=== PATIENT | male | born 1950 | race Caucasian/White ===

== ENCOUNTER → 2018-12-02 | Outpatient (CLI) | payer MEDICARE, OTHER ==
--- NOTE | 2018-12-02 16:57 | Diagnostic Imaging Report ---
PROCEDURE: CT abdomen and pelvis without contrast. TECHNIQUE: Multiple contiguous axial images were obtained through the abdomen and pelvis without the use of intravenous contrast. Auto Exposure Controls were utilized during the CT exam to meet ALARA standards for radiation dose reduction. INDICATION: Right lower quadrant pain. COMPARISON: There are no prior studies available for comparison. FINDINGS: Image 134/167 through the low pelvis shows a small 2 mm calculus in the distal right ureter roughly 2 cm from the ureterovesical junction. The ureter proximal to the calculus is slightly dilated, and there is some distortion of the periureteral fat as well. The right renal pelvis also slightly is dilated; most likely there is partial obstruction of the right collecting system due to the aforementioned calculus. There are a few minute 1 mm nonobstructive calculi within both kidneys as well as an 11-12 mm nonobstructive calculus in the mid portion of the left kidney and 5 mm and 10 mm nonobstructing calculi in the inferior pole of the left kidney. There are also benign-appearing cysts associated with both kidneys. However, there may be slight thickening of the dependent wall of the cyst along the superior pole of the right kidney. There is no evidence for a solid mass in this area, but either ultrasound or follow-up CT exam with intravenous contrast would be recommended to better evaluate this finding. There is no acute abnormality of the abdomen or pelvis noted otherwise. The liver was not visualized in its entirety as the dome of the liver is not included. Where visualized, the liver is unremarkable. The gallbladder, the spleen, the pancreas, the adrenals, the aorta, and the inferior vena cava show no sign of an acute abnormality. The stomach is not well distended and consequently difficult to assess. The appendix was visualized and is not abnormally thickened. There is diverticulosis of the sigmoid and descending colon, but there is no sign of acute diverticulitis. The urinary bladder is grossly unremarkable. The prostate gland is mildly enlarged measuring 5.6 cm in maximum transverse diameter (normal 5 cm or less). There may be a hydrocele within the right scrotum. If further study is desired, then ultrasound would be recommended. The bone windows show no sign of a fracture or of a destructive lesion. There is fairly severe degenerative disc and bony disease at L5-S1. The lung bases are generally clear. IMPRESSION: 1. There is partial obstruction of the right collecting system due to a 2 mm calculus near the ureterovesical junction. There are also nonobstructive calculi within both kidneys including at least two sizable calculi within the left kidney. 2. There is no acute abnormality of the abdomen or pelvis noted otherwise. 3. The prostate gland is mildly enlarged. 4. There is diverticulosis of the sigmoid and descending colon, but there is no sign of acute diverticulitis. 5. There is a questionable hydrocele involving the right scrotum. Recommendations as above. Dictated by: Dictated on workstation # [id number]
== END ==
LOC: RAD FS 15:47
PROVIDERS: ATTEND Surgery
DX: N20.2 Calculus of kidney with calculus of ureter (principal); K57.30 Diverticulosis of large intestine without perforation or abscess without bleeding; N40.0 Benign prostatic hyperplasia without lower urinary tract symptoms
CPT/HCPCS: 74176

== ENCOUNTER → 2018-12-09 | Outpatient (CLI) | payer MEDICARE, OTHER ==
--- NOTE | 2018-12-09 15:35 | Diagnostic Imaging Report ---
INDICATION: Right renal stone. TIME OF EXAMINATION: 12:34 PM. COMPARISON: No prior abdominal radiographs are available for comparison. Comparison is made with a recent CT study from 12/02/2018. FINDINGS: The previously seen nonobstructing calculi overlie the midportion of the left kidney. No definite right-sided renal calculi are seen. The tiny calculus in the region of the distal right ureter on the recent CT is not appreciated radiographically. The bowel gas pattern is unremarkable. IMPRESSION: Left-sided renal calculi. No other abnormality is detected. Dictated by: Dictated on workstation # [id number]
== END ==
LOC: RAD 12:21
PROVIDERS: ATTEND Urology
DX: N20.0 Calculus of kidney (principal)
CPT/HCPCS: 74018

== ENCOUNTER → 2018-12-25 | Outpatient (CLI) | payer MEDICARE, OTHER | END | disposition home or self-care (01) | LOC: PREOP 05:47 | PROVIDERS: ATTEND Urology | DX: Z01.818 Encounter for other preprocedural examination (principal) ==

== ENCOUNTER → 2019-12-31 | Outpatient (CLI) | payer MEDICARE, OTHER ==
[2020-01-01 13:04] LABS: POTASSIUM 4.2 MMOL/L (3.6-5.0)
[2020-01-01 13:05] LABS: BILIRUBIN,TOTAL 0.3 MG/DL (0.1-1.0); CALCIUM 9.2 MG/DL (8.5-10.1); CREATININE SERUM 1.73 MG/DL (0.60-1.30)
[2020-01-01 13:06] LABS: ALBUMIN 4.3 GM/DL (3.2-4.5)
== END ==
LOC: LAB FS 09:37
PROVIDERS: ATTEND Family Medicine
DX: I10 Essential (primary) hypertension (principal); E78.5 Hyperlipidemia, unspecified; G47.00 Insomnia, unspecified; R97.20 Elevated prostate specific antigen [PSA]
CPT/HCPCS: 36415; 80053; 80061; 84153

== ENCOUNTER → 2020-02-20 | Outpatient (CLI) | payer MEDICARE, OTHER ==
--- NOTE | 2020-02-20 14:23 | Diagnostic Imaging Report ---
INDICATION: Kidney stones. TIME OF EXAM: 01:50 p.m. COMPARISON: Correlation is made with prior radiograph from 12/09/2018. FINDINGS: Previously noted calcific densities overlying the left renal shadow are again noted. No right-sided renal calculi are seen. No calculi along the expected course of the ureters are identified. Bowel gas pattern is unremarkable. IMPRESSION: Left-sided renal calculi, similar to examination from 12/09/2018. Dictated by: Dictated on workstation # [id number]
[2020-02-20 15:32] LABS: HEMATOCRIT 39 % (40-54); HEMOGLOBIN 13.2 G/DL (13.3-17.7); MEAN CORPUSCULAR HEMOGLOBIN 32 PG (25-34); MEAN CORPUSCULAR VOLUME 93 FL (80-99); WHITE BLOOD COUNT 6.6 10^3/uL (4.3-11.0)
[2020-02-20 15:33] LABS: BASOPHILS % (AUTO) 0 % (0-10); EOSINOPHILS # (AUTO) 0.3 10^3/uL (0.0-0.3); EOSINOPHILS % (AUTO) 4 % (0-10); LYMPHOCYTES # (AUTO) 1.4 X 10^3 (1.0-4.0); LYMPHOCYTES % (AUTO) 21 % (12-44); MEAN CORPUSCULAR HGB CONC 34 G/DL (32-36); MEAN PLATELET VOLUME 9.8 FL (7.4-10.4); MONOCYTES # (AUTO) 0.5 X 10^3 (0.0-1.0); MONOCYTES % (AUTO) 7 % (0-12); NEUTROPHILS # (AUTO) 4.5 X 10^3 (1.8-7.8); NEUTROPHILS % (AUTO) 67 % (42-75); PLATELET COUNT 196 10^3/uL (130-400)
[2020-02-20 15:59] LABS: POTASSIUM 4.6 MMOL/L (3.6-5.0)
[2020-02-20 16:00] LABS: CALCIUM 9.7 MG/DL (8.5-10.1); CREATININE SERUM 1.58 MG/DL (0.60-1.30)
== END ==
LOC: RAD FS 13:43
PROVIDERS: ATTEND Urology
DX: Z01.812 Encounter for preprocedural laboratory examination (principal); N28.9 Disorder of kidney and ureter, unspecified; R97.20 Elevated prostate specific antigen [PSA]; Z87.442 Personal history of urinary calculi
CPT/HCPCS: 36415; 74018; 80048; 85025; G0103; 84153

== ENCOUNTER 2020-03-03 13:31 | Emergency (ER) | payer MEDICARE, OTHER ==
[2020-03-03] MEDS ORDERED: NS IV 1000 ML 1,000 ML IV STA (13:47)
--- NOTE | 2020-03-03 13:50 | ED Abdominal Pain ---
General Chief Complaint: Abdominal/GI Problems Stated Complaint: ABD PAIN Nursing Triage Note: Is having lower left quadrant abdominal pain x4 days. Last BM was 02/27 and was small and hard. States he is constipated. Has been miralax daily, fleet enema on 02/28, dulcolax for 3 days, and a suppository today with no relief. Pain is rated at 6/10. Has been taking tylenol for pain. Sepsis Screen: No Definite Risk Source of Information: Patient, Old Records, RN/MD, RN Notes Reviewed History of Present Illness Date Seen by Provider: Mar 03, 2020 Time Seen by Provider: 13:40 Initial Comments This patient is a 69-year-old male presents to the emergency department complaining of left lower quadrant abdominal pain this been persistent for 2 days. Patient states that he believes is constipated and has been taking laxativ es with no relief. Patient says when history as he recently had a lithotripsy Do history kidney stones and had been feeling well for couple days until this abdominal pain starts. Patient denies clot flank pain denies fever. Denies issues with urination. We'll do medical evaluation treatment is needed. Timing/Duration: 1-2 Days Severity/Quality: Moderate Location: LLQ Radiation: No Radiation Associated Symptoms: Denies Symptoms Allergies and Home Medications Allergies Coded Allergies: No Known Drug Allergies (Unverified , 03/03/20) Patient Home Medication List Home Medication List Reviewed: Yes Review of Systems Review of Systems Constitutional: No no symptoms reported, No see HPI, No chills, No diaphoresis, No dizziness, No fever, No malaise, No weakness, No weight gain, No weight loss, No other EENTM: No No Symptoms Reported, No See HPI, No Blurred Vision, No Double Vision, No Eye Pain, No Eye Tearing, No Ear Drainage, No Ear Pain, No Mouth Pain, No Mouth Swelling, No Nose Congestion, No Nose Pain, No Throat Pain, No Throat Swelling, No Other Respiratory: Denies No Symptoms Reported, Denies See HPI, Denies Cough, Denies Orthopnea, Denies Shortness of Air, Denies SOA With Exertion, Denies SOA at Rest, Denies Stridor, Denies Wheezing, Denies Other Cardiovascular: Denies No Symptoms Reported, Denies See HPI, Denies Chest Pain, Denies Edema, Denies Irregular Heart Rate, Denies Lightheadedness, Denies Palpitations, Denies Syncope, Denies Other Gastrointestinal: Denies No Symptoms Reported; See HPI; Denies Abdomen Distended; Abdominal Pain; Denies Blood Streaked Stools, Denies Constipated, Denies Diarrhea, Denies Difficulty Swallowing, Denies Nausea, Denies Poor Appetite, Denies Poor Fluid Intake, Denies Rectal Bleeding, Denies Vomiting, Denies Other Genitourinary: Denies No Symptoms Reported, Denies See HPI, Denies Burning, Denies Discharge, Denies Drainage, Denies Frequency, Denies Flank Pain, Denies Hematuria, Denies Incontinence, Denies Pain, Denies Urgency, Denies Other Musculoskeletal: No no symptoms reported, No see HPI, No back pain, No gout, No joint pain, No joint swelling, No muscle pain, No muscle stiffness, No muscle cramps, No muscle twitching, No muscle weakness, No neck pain, No other Skin: No no symptoms reported, No see HPI, No change in color, No change in hair/nails, No dryness, No hx of skin cancer, No lesions, No lumps, No pruritus, No rash, No other All Other Systems Reviewed Negative Unless Noted: Yes Past Lspxliu-Racumx-Ztzflj Hx Patient Social History Recent Foreign Travel: No Contact w/Someone Who Travel: No Recent Infectious Disease Expo: No Physical Exam Vital Signs Vital Signs - First Documented 03/03/20 13:36 Temp 36.8 Pulse 68 Resp 16 B/P (MAP) 157/99 (118) Pulse Ox 100 Capillary Refill : Less Than 3 Seconds Height/Weight/BMI Height: '" Weight: lbs. oz. kg; BMI Method: General Appearance: WD/WN, no apparent distress Respiratory: chest non-tender, lungs clear, normal breath sounds, no respiratory distress, no accessory muscle use Cardiovascular: normal peripheral pulses, regular rate, rhythm, no edema, no gallop, no JVD, no murmur Gastrointestinal: normal bowel sounds, soft, no organomegaly, no pulsatile mass, tenderness (left lower quadrant) Skin: normal color, warm/dry Progress/Results/Core Measures Results/Orders Lab Results Laboratory Tests Test 03/03/20 13:47 03/03/20 14:53 Range/Units White Blood Count 6.6 4.3-11.0 10^3/uL Red Blood Count 4.64 4.35-5.85 10^6/uL Hemoglobin 14.4 13.3-17.7 G/DL Hematocrit 44 40-54 % Mean Corpuscular Volume 94 80-99 FL Mean Corpuscular Hemoglobin 31 25-34 PG Mean Corpuscular Hemoglobin Concent 33 32-36 G/DL Red Cell Distribution Width 12.5 10.0-14.5 % Platelet Count 114 L 130-400 10^3/uL Mean Platelet Volume 9.2 7.4-10.4 FL Immature Granulocyte % (Auto) 0 % Neutrophils (%) (Auto) 73 42-75 % Lymphocytes (%) (Auto) 13 12-44 % Monocytes (%) (Auto) 10 0-12 % Eosinophils (%) (Auto) 3 0-10 % Basophils (%) (Auto) 0 0-10 % Neutrophils # (Auto) 4.8 1.8-7.8 X 10^3 Lymphocytes # (Auto) 0.9 L 1.0-4.0 X 10^3 Monocytes # (Auto) 0.6 0.0-1.0 X 10^3 Eosinophils # (Auto) 0.3 0.0-0.3 10^3/uL Basophils # (Auto) 0.0 0.0-0.1 10^3/uL Immature Granulocyte # (Auto) 0.0 0.0-0.1 10^3/uL Sodium Level 137 135-145 MMOL/L Potassium Level 4.6 3.6-5.0 MMOL/L Chloride Level 104 98-107 MMOL/L Carbon Dioxide Level 21 21-32 MMOL/L Anion Gap 12 5-14 MMOL/L Blood Urea Nitrogen 31 H 7-18 MG/DL Creatinine 2.87 H 0.60-1.30 MG/DL Estimat Glomerular Filtration Rate 22 BUN/Creatinine Ratio 11 Glucose Level 99 70-105 MG/DL Calcium Level 9.8 8.5-10.1 MG/DL Corrected Calcium 9.7 8.5-10.1 MG/DL Total Bilirubin 0.9 0.1-1.0 MG/DL Aspartate Amino Transf (AST/SGOT) 52 H 5-34 U/L Alanine Aminotransferase (ALT/SGPT) 146 H 0-55 U/L Alkaline Phosphatase 120 40-136 U/L Total Protein 7.6 6.4-8.2 GM/DL Albumin 4.1 3.2-4.5 GM/DL Urine Color DK YELLOW Urine Clarity SL CLOUDY Urine pH 6.0 5-9 Urine Specific [place] 1.025 H 1.016-1.022 Urine Protein NEGATIVE NEGATIVE Urine Glucose (UA) NEGATIVE NEGATIVE Urine Ketones 1+ H NEGATIVE Urine Nitrite NEGATIVE NEGATIVE Urine Bilirubin NEGATIVE NEGATIVE Urine Urobilinogen 0.2 < = 1.0 MG/DL Urine Leukocyte Esterase NEGATIVE NEGATIVE Urine RBC (Auto) 3+ H NEGATIVE Urine RBC >100 H /HPF Urine WBC 0-2 /HPF Urine Squamous Epithelial Cells RARE /HPF Urine Crystals NONE /LPF Urine Bacteria NEGATIVE /HPF Urine Casts NONE /LPF Urine Mucus NEGATIVE /LPF Urine Culture Indicated NO My Orders Orders - CAROLINA KHAN MD Ed Iv/Invasive Line Start (03/03/20 13:47) Ct Abd/Pelvis Wo(Kidney Stone) (03/03/20 13:47) Cbc With Automated Diff (03/03/20 13:47) Comprehensive Metabolic Panel (03/03/20 13:47) Urinalysis (03/03/20 13:47) Ketorolac Injection (Toradol Injection) (03/03/20 14:00) Ondansetron Injection (Zofran Injectio (03/03/20 14:00) Ns Iv 1000 Ml (Sodium Chloride 0.9%) (03/03/20 13:47) Medications Given in ED Current Medications Medications Dose Ordered Sig/Robin Route Start Time Stop Time Status Last Admin Dose Admin Ketorolac Tromethamine 15 mg ONCE ONCE IV 03/03/20 14:00 03/03/20 14:01 DC 03/03/20 14:19 15 MG Ondansetron HCl 4 mg ONCE ONCE IVP 03/03/20 14:00 03/03/20 14:01 DC 03/03/20 14:19 4 MG Vital Signs/I&O 03/03/20 13:36 Temp 36.8 Pulse 68 Resp 16 B/P (MAP) 157/99 (118) Pulse Ox 100 Blood Pressure Mean: 118 Progress Progress Note : Time: 15:27 Progress Note I did discuss at length with Dr. Cabrera patient's urologist who is unavailable to accept the patient and to be out of town. He recommended trying another facility. I had multiple calls to multiple facilities and most all facilities were on divert. I was able to speak to Dr. Wagner at [facility] who is agreed to accept this patient for transfer due to his obstructive uropathy. Patient be transferred as soon as possible. Departure Impression Primary Impression: Lower obstructive uropathy Additional Impressions: Abdominal pain Urolithiasis Acute renal failure Disposition: XFER SHT-TRM HOSP Condition: Stable Transfer Transfer Reason: Exceeds level of care Time Spoke to Accepting Phy: 15:[address] Wagner urology Transfer Time: 15:28 Transfer Facility: [facility]. Method of Transfer: EMS Departure-Patient Inst. Referrals: CHIOMA YIN MD (PCP/Family) Primary Care Physician CAROLINA KHAN MD Mar 03, 2020 13:49
[2020-03-03 13:57] LABS: BASOPHILS % (AUTO) 0 % (0-10); EOSINOPHILS # (AUTO) 0.3 10^3/uL (0.0-0.3); EOSINOPHILS % (AUTO) 3 % (0-10); HEMATOCRIT 44 % (40-54); HEMOGLOBIN 14.4 G/DL (13.3-17.7); LYMPHOCYTES # (AUTO) 0.9 X 10^3 (1.0-4.0); LYMPHOCYTES % (AUTO) 13 % (12-44); MEAN CORPUSCULAR HEMOGLOBIN 31 PG (25-34); MEAN CORPUSCULAR HGB CONC 33 G/DL (32-36); MEAN CORPUSCULAR VOLUME 94 FL (80-99); MEAN PLATELET VOLUME 9.2 FL (7.4-10.4); MONOCYTES # (AUTO) 0.6 X 10^3 (0.0-1.0); MONOCYTES % (AUTO) 10 % (0-12); NEUTROPHILS # (AUTO) 4.8 X 10^3 (1.8-7.8); NEUTROPHILS % (AUTO) 73 % (42-75); PLATELET COUNT 114 10^3/uL (130-400); WHITE BLOOD COUNT 6.6 10^3/uL (4.3-11.0)
[2020-03-03] MEDS ORDERED: ONDANSETRON 4 MG/2 ML (SDV) Z0FRAN IVP ONE (14:00)
[2020-03-03] MEDS ORDERED: KETOROLAC 60 MG/2 ML VIAL IV ONE (14:00)
[2020-03-03 14:15] LABS: BILIRUBIN,TOTAL 0.9 MG/DL (0.1-1.0); CALCIUM 9.8 MG/DL (8.5-10.1); CREATININE SERUM 2.87 MG/DL (0.60-1.30); POTASSIUM 4.6 MMOL/L (3.6-5.0)
[2020-03-03 14:16] LABS: ALBUMIN 4.1 GM/DL (3.2-4.5); TOTAL PROTEIN 7.6 GM/DL (6.4-8.2)
--- NOTE | 2020-03-03 14:21 | Diagnostic Imaging Report ---
PROCEDURE: CT urinary tract, rule out kidney stone. TECHNIQUE: Multiple contiguous axial images were obtained through the abdomen and pelvis without the use of intravenous contrast. Auto Exposure Controls were utilized during the CT exam to meet ALARA standards for radiation dose reduction. INDICATION: History of kidney stones. Status post recent lithotripsy. COMPARISON: 12/02/2018 FINDINGS: Included portions of the lung bases are clear. Note is made of aneurysmal dilatation in the ascending thoracic aorta. This measures 4.[address] ABDOMEN: Multiple calculi are identified throughout the left ureter. These all measure approximately 3-4 mm in diameter. As a result, there is moderate proximal hydroureteronephrosis. Multiple additional nonobstructive left renal calculi as well as single punctate nonobstructive right renal calculus are also identified. There is no ureteral calculus on the right. Additionally, there is no hydronephrosis or other evidence of obstruction on the right. Hypodense bilateral renal cysts are also noted. The adrenal glands, spleen, pancreas, and liver have an unremarkable noncontrast CT appearance. Small bowel loops are nondistended. Normal appendix is identified. There is no loculated fluid collection, free fluid or free air within the abdomen. No abnormal mesenteric or retroperitoneal adenopathy is seen. Osseous structures show no acute abnormalities CT PELVIS: Urinary bladder is unopacified. No calculi are seen within the urinary bladder. Again, there are multiple calculi within the distal left ureter. There is no loculated fluid collection, free fluid or free air within the pelvis. No abnormal lymph nodes are seen. Fat-containing left inguinal hernia is noted. Osseous structures show no acute abnormalities. IMPRESSION: 1. Multiple left ureteral calculi resulting in moderate proximal hydroureteronephrosis. 2. Multiple additional bilateral nonobstructive renal calculi, left greater than right. 3. Moderate colonic air and stool. Please correlate for constipation. 4. Aneurysmal dilatation of the ascending thoracic aorta. Dictated by: Dictated on workstation # [id number]
[2020-03-03 15:17] LABS: BILIRUBIN,URINE NEGATIVE (NEGATIVE); CLARITY,URINE SL CLOUDY; COLOR,URINE DK YELLOW; GLUCOSE, URINE (UA) NEGATIVE (NEGATIVE); KETONES,URINE 1+ (NEGATIVE); LEUKOCYTE ESTERASE ,URINE NEGATIVE (NEGATIVE); NITRITE,URINE NEGATIVE (NEGATIVE); PROTEIN,URINE NEGATIVE (NEGATIVE); RBC,URINE >100 /HPF; WBC,URINE 0-2 /HPF
[2020-03-03 15:18] LABS: BACTERIA,URINE NEGATIVE /HPF; SQUAMOUS EPITHELIAL CELL,UR RARE /HPF
--- NOTE | 2020-03-03 16:31 | NUR ---
Received call from [facility]. States they are waiting for patient discharges and will then call to assign a bed.
[2020-03-03 20:25] VITALS: BP 147/92
--- NOTE | 2020-03-03 20:25 | NUR ---
[facility] here for transport, report and care given
== END 2020-03-03 20:25 | disposition short-term general hospital (02) ==
LOC: EDUNIT# 13:31 → ER FS 13:32
DX: N13.9 Obstructive and reflux uropathy, unspecified (principal); N20.9 Urinary calculus, unspecified; N17.9 Acute kidney failure, unspecified
CPT/HCPCS: 36415; 74176; 80053; 81000; 85025

== ENCOUNTER → 2020-08-16 | Outpatient (CLI) | payer MEDICARE, OTHER ==
[2020-08-16 10:18] LABS: CREATININE SERUM 1.68 MG/DL (0.60-1.30); POTASSIUM 4.6 MMOL/L (3.6-5.0)
[2020-08-16 10:19] LABS: ALBUMIN 4.5 GM/DL (3.2-4.5); BILIRUBIN,TOTAL 0.6 MG/DL (0.1-1.0); CALCIUM 9.9 MG/DL (8.5-10.1); TOTAL PROTEIN 7.4 GM/DL (6.4-8.2)
== END ==
LOC: LAB FS 09:23
PROVIDERS: ATTEND Family Medicine
DX: E78.5 Hyperlipidemia, unspecified (principal)
CPT/HCPCS: 36415; 80053; 80061

== ENCOUNTER → 2021-03-03 | Outpatient (CLI) | payer MEDICARE, OTHER ==
[~2021-03-03] MED LIST: CATHETER FLUSH 10 ML SYR IV PRN; HOLD METFORMIN - RECEIVED CONTRAST 20 ML VIAL IV SCH; IOHEXOL 350 MG/ML 100 ML (OMNIPAQUE 350) VIAL IV ONE; NS 100 ML (IVPB) BAG IV ONE
[2021-03-03 09:24] LABS: CREATININE SERUM 1.61 MG/DL (0.60-1.30)
--- NOTE | 2021-03-03 12:53 | Diagnostic Imaging Report ---
PROCEDURE: CT angiography of the abdomen and chest with and without contrast. TECHNIQUE: After intravenous administration of contrast, thin section axial CT angiography of the abdomen and chest were obtained. 3D MIP reformats were provided. Auto Exposure Controls were utilized during the CT exam to meet ALARA standards for radiation dose reduction. INDICATION: Aortic aneurysm follow-up. Comparison is made with a prior study from 03/03/2020 FINDINGS: The aortic root measures approximately 4.0 cm. The mid ascending aorta measures approximately 4.7 cm. The brachiocephalic vessel origins are widely patent. The descending aorta measures approximately 2.6 cm. There is no stenosis or dissection. The abdominal aorta has greatest outside dimension of 2.5 cm. The celiac axis, SMA, renal arteries and VIBHA are widely patent. The proximal common iliac arteries are widely patent. There is no dissection or stenosis. The lungs are clear. There is no effusion or pneumothorax. There is no mediastinal mass or adenopathy. There is no acute bony abnormality. The liver, gallbladder and bile ducts are normal. The spleen, pancreas and adrenals are normal. There are cysts on the kidneys. No bowel abnormality is seen. IMPRESSION: The mid descending aorta has a diameter 4.7 cm similar to the 03/03/2020 CT. There is no aneurysm of the descending aorta or abdominal aorta. There is no stenosis or dissection. Dictated by: Dictated on workstation # [id number]
== END ==
LOC: RAD FS 08:41
PROVIDERS: ATTEND Registered Nurse Emergency
DX: I71.2 Thoracic aortic aneurysm, without rupture (principal)
CPT/HCPCS: 36415; 71275; 74175; 82565; 84520